=== PATIENT | male | born 1985 | race African-American/Black ===

== ENCOUNTER 2021-01-26 07:33 | Emergency (ER) | payer OTHER ==
[~2021-01-26] VITALS: Ht 167.6 cm; Wt 91.2 kg
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
[2021-01-26 09:37] VITALS: BP 137/77
[2021-01-26] MEDS ORDERED: ONDANSETRON ODT 4 MG TAB.RAPDIS. PO ONE (09:45)
[2021-01-26] MEDS ORDERED: ONDA4TAB7 PO (09:56)
== END 2021-01-26 10:06 | disposition home or self-care (01) ==
LOC: ER 07:33
DX: S06.0X0A Concussion without loss of consciousness, initial encounter (principal); R07.81 Pleurodynia; R11.2 Nausea with vomiting, unspecified; V43.53XA Car driver injured in collision with pick-up truck in traffic accident, initial encounter; Y92.488 Other paved roadways as the place of occurrence of the external cause; Y93.89 Activity, other specified; Y99.8 Other external cause status
CPT/HCPCS: 70450; 71101; 99284-25